=== PATIENT | male | born 1970 | race Caucasian/White ===

== ENCOUNTER → 2023-09-27 07:21 | Outpatient (REF) | payer OTHER, SELFPAY | LOC: RAD 07:21 | PROVIDERS: ATTENDING PHYSICIAN Emergency Medicine | DX: M25.551 Pain in right hip (principal); M25.561 Pain in right knee; M54.50 Low back pain, unspecified | CPT/HCPCS: 72110; 73502; 73564 ==

== ENCOUNTER → 2023-10-05 08:46 | Outpatient (REF) | payer OTHER, SELFPAY ==
[2023-10-08 16:30] LABS: Direct Bilirubin 0.5 mg/dl (0.0-0.4)
== END ==
LOC: CLAB 08:46
PROVIDERS: ATTENDING PHYSICIAN Emergency Medicine
DX: R17 Unspecified jaundice (principal)
CPT/HCPCS: 82247; 82248

== ENCOUNTER → 2023-11-21 07:04 | Outpatient (REF) | payer OTHER, SELFPAY | LOC: RAD 07:04 | PROVIDERS: ATTENDING PHYSICIAN Emergency Medicine | DX: R10.11 Right upper quadrant pain (principal); R17 Unspecified jaundice | CPT/HCPCS: 74177; Q9967 ==